=== PATIENT | female | born 1980 | race Two or more races ===

== ENCOUNTER 2023-07-03 09:54 | Outpatient (CLI) | payer OTHER | END 2023-07-03 09:57 | disposition home or self-care (01) | LOC: PRENATAL 09:54 | PROVIDERS: ATTEND Obstetrics & Gynecology Maternal & Fetal Medicine | DX: O35.9XX0 Maternal care for (suspected) fetal abnormality and damage, unspecified, not applicable or unspecified (principal); O35.3XX0 Maternal care for (suspected) damage to fetus from viral disease in mother, not applicable or unspecified; O09.529 Supervision of elderly multigravida, unspecified trimester; O34.219 Maternal care for unspecified type scar from previous cesarean delivery; Z3A.23 23 weeks gestation of pregnancy ==